=== PATIENT | female | born 1980 | race Caucasian/White ===

== ENCOUNTER 2020-03-02 10:46 | Outpatient (CLI) | payer OTHER ==
--- NOTE | 2020-03-02 11:42 | ULT ---
EXAM: US Breast Limited Lt PROVIDED CLINICAL HISTORY: Abnormal screening mammogram COMPARISON: Screening mammogram 02/23/2020 FINDINGS: Limited sonographic interrogation was performed of the left breast in the region of mammographic conc radha at the 6:00 position. Adjacent simple cysts are present, in aggregate measuring about 7 mm. No concerning sonographic findings are evident. IMPRESSION: Simple cysts are present in the region of mammographic concern. BI-RADS Category 2-benign findings. Return to annual screening mammography recommended. BI-RADS 2 -- benign findings
== END 2020-03-02 10:47 | disposition home or self-care (01) ==
LOC: BICULT 10:46
PROVIDERS: ATTEND Obstetrics & Gynecology
DX: R92.8 Other abnormal and inconclusive findings on diagnostic imaging of breast (principal); N60.02 Solitary cyst of left breast